=== PATIENT | female | born 1985 | race Caucasian/White ===

== ENCOUNTER 2016-09-17 14:29 | Emergency (ER) | payer SELFPAY ==
[~2016-09-17] VITALS: Ht 152.4 cm; Wt 123.3 kg
[~2016-09-17 14:29] MED LIST: NOHOMEMEDS; ZANTAC150 MG PO
[2016-09-17] MEDS ORDERED: VITAMIN D31000 UNIT PO (15:41)
[2016-09-17] MEDS ORDERED: VENTOLIN HFA18 GM IH (16:01)
[2016-09-17] MEDS ORDERED: PREDNISONE20 MG PO (16:01)
[2016-09-17] MEDS ORDERED: ZITHROMAX250 MG PO (16:01)
[2016-09-17 16:30] VITALS: BP 164/100
== END 2016-09-17 16:31 | disposition home or self-care (01) ==
LOC: EME 14:29
DX: J18.0 Bronchopneumonia, unspecified organism (principal)
CPT/HCPCS: 71020; 99281; 99284; J7512

== ENCOUNTER 2016-10-09 16:25 | Emergency (ER) | payer SELFPAY ==
[~2016-10-09] VITALS: Ht 152.4 cm; Wt 120.8 kg
[~2016-10-09 16:25] MED LIST changes: +PREDNISONE20 MG PO; +VENTOLIN HFA18 GM IH; +VITAMIN D31000 UNIT PO; +ZITHROMAX250 MG PO
[2016-10-09 16:29] VITALS: BP 137/83
[2016-10-09] MEDS ORDERED: KEFLEX500 MG PO (16:55)
[2016-10-09] MEDS ORDERED: BACTRIM,SEPT1 TABLET PO (16:55)
== END 2016-10-09 17:34 | disposition home or self-care (01) ==
LOC: EME 16:25
PROC: 0H97X0Z Drainage of Abdomen Skin with Drainage Device, External Approach (ICD-10-PCS; principal; 2016-10-09)
DX: L02.211 Cutaneous abscess of abdominal wall (principal); L03.311 Cellulitis of abdominal wall
CPT/HCPCS: 87070; 87075; 87076; 87077; 87185; 87186; 87205; 99281; 99284